=== PATIENT | female | born 1945 | race Caucasian/White ===

== ENCOUNTER 2019-10-17 09:55 | Inpatient (IN) ==
[2019-10-17] MEDS ORDERED: ONDANSETRON 4 MG/2 ML VIAL IV STA (11:49)
[2019-10-17] MEDS ORDERED: HYDROmorphone 2 MG/1 ML VIAL IM STA (11:49)
[2019-10-17 12:14] LABS: Basophils % 0.2 % (0.0-0.8); Eosinophils # 0.1 10*3/uL (0.0-0.87); Eosinophils % 0.7 % (0.00-10.9); Hematocrit 36.5 VOL% (35.7-47.0); Hemoglobin 12.3 GM/DL (12.0-16.0); Immature Granulocytes % 0.6 %; Immature Granulocytes Absolute 0.11 #; Lymphocytes # 1.5 10*3/uL (1.4-4.0); Mean Corpuscular HGB Conc 33.7 GM/DL (32-36); Mean Corpuscular Volume 95.1 FL (87-102); Mean Platelet Volume 11.5 FL (9.6-12.0); Monocytes % 3.4 % (1.7-12.7); Neutrophils % 87.1 % (38.7-73.9); Platelet Count 200 T/CUMM (130-400); Red Blood Count 3.84 MC/CUMM (3.8-5.5); Red Cell Distribution Width 14.6 % (9.3-17.3); White Blood Count 18.4 T/CUMM (4-12)
[2019-10-17 12:32] LABS: Bilirubin,Total 0.7 MG/DL (0.2-1.0); Calcium 8.3 MG/DL (8.5-10.1); Osmolality,Calculated 278.4 MOS/KG (273-304); Total Protein 6.8 G/DL (6.4-8.3)
[2019-10-17] MEDS ORDERED: HYDROmorphone 2 MG/1 ML VIAL IV STA (12:35)
[2019-10-17] MEDS ORDERED: VANCOMYCIN INJ 1,250 MG in SODIUM CHLORIDE 0.9% 250 ML IV STA (12:43)
[2019-10-17] MEDS ORDERED: PIPERACILLIN/TAZOBACTAM 3,375 MG in SODIUM CHLORIDE 0.9% 100 ML IV STA (12:43)
[2019-10-17] MEDS ORDERED: POTASSIUM CHLORIDE 20 MEQ TABLET PO STA (12:45)
[2019-10-17] MEDS ORDERED: SODIUM CHLORIDE 0.9% 1,000 ML IV STA (12:45)
[2019-10-17] MEDS ORDERED: ACETAMINOPHEN 325 MG TABLET PO PRN (13:41)
[2019-10-17] MEDS ORDERED: LACTULOSE 20 GM/30 ML UDCUP PO PRN (13:41)
[2019-10-17] MEDS ORDERED: ONDANSETRON 4 MG/2 ML VIAL IV PRN (13:41)
[2019-10-17] MEDS ORDERED: MAGNESIUM SULF RIDER 2 GM in PREMIX 1 EACH IV PRN (13:47)
[2019-10-17] MEDS ORDERED: MAGNESIUM SULF RIDER 4 GM in PREMIX 1 EACH IV PRN (13:47)
[2019-10-17] MEDS ORDERED: SODIUM CHLORIDE 0.9% 2,450 ML IV ONE (13:47)
[2019-10-17] MEDS ORDERED: FUROSEMIDE 20 MG/2 ML VIAL IV ONE (14:50)
[2019-10-17 15:15] LABS: Apearance,Urine CLEAR (Clear); Bilirubin,Urine Negative (Negative); Blood, Urine Negative (Negative); Glucose,Urine (UA) Negative (Negative); Ketones,Urine Negative (Negative); Mucus,Urine Occasional /LPF (Occasional); Nitrite,Urine Negative (Negative); Protein,Urine Negative; RBC,Urine 5 /HPF (0-4); Squamous Epithelial Cell,Urine Occasional /HPF (0-10); Urine Color Yellow (Yellow); Urine Urobilinogen < 2.0 EU/DL (0.2-1.0); WBC,Urine 6 /HPF (0-6)
[2019-10-17] MEDS ORDERED: hydrALAZINE 20 MG/1 ML VIAL IV PRN (15:17)
[2019-10-17] MEDS ORDERED: POTASSIUM CHLORIDE RIDER 10 MEQ in PREMIX 1 EACH IV PRN (16:00)
[2019-10-17] MEDS: SODIUM CHLORIDE 0.9% 1,000 ML IV SCH (18:22)
[2019-10-17] MEDS: MORPHINE 4 MG/1 ML VIAL IV PRN (18:22)
[2019-10-17] MEDS: LEVOFLOXACIN INJ 750 MG in PREMIX 1 EACH IV SCH (18:23)
[2019-10-17] MEDS: ALBUTEROL/IPRATROPIUM 3 ML NEB RESP TX SCH (19:18)
[2019-10-17] MEDS: PIPERACILLIN/TAZOBACTAM 3,375 MG in SODIUM CHLORIDE 0.9% 100 ML IV SCH (20:55)
[2019-10-17] MEDS: diphenhydrAMINE CAP 25 MG CAPSULE PO PRN (21:18)
[2019-10-17] MEDS: ENOXAPARIN 40 MG/0.4 ML SYRINGE SUBCUT SCH (21:19)
[2019-10-18] MEDS: VANCOMYCIN INJ 1,250 MG in SODIUM CHLORIDE 0.9% 250 ML IV SCH ×2 (00:29→12:48)
[2019-10-18] MEDS: ALBUTEROL/IPRATROPIUM 3 ML NEB RESP TX SCH ×4 (00:50→19:14)
[2019-10-18] MEDS: MORPHINE 4 MG/1 ML VIAL IV PRN ×3 (01:26→20:42)
[2019-10-18] MEDS: PIPERACILLIN/TAZOBACTAM 3,375 MG in SODIUM CHLORIDE 0.9% 100 ML IV SCH ×2 (04:59→17:44)
[2019-10-18 06:36] LABS: Basophils % 0.3 % (0.0-0.8); Eosinophils # 0.3 10*3/uL (0.0-0.87); Eosinophils % 1.8 % (0.00-10.9); Hematocrit 33.3 VOL% (35.7-47.0); Hemoglobin 10.5 GM/DL (12.0-16.0); Immature Granulocytes % 0.6 %; Immature Granulocytes Absolute 0.09 #; Lymphocytes # 1.7 10*3/uL (1.4-4.0); Lymphocytes % 11.9 % (21.3-54.2); Mean Corpuscular HGB Conc 31.5 GM/DL (32-36); Monocytes % 5.4 % (1.7-12.7); Platelet Count 189 T/CUMM (130-400); Red Blood Count 3.33 MC/CUMM (3.8-5.5); Red Cell Distribution Width 15.1 % (9.3-17.3); White Blood Count 14.5 T/CUMM (4-12)
[2019-10-18 07:00] LABS: Albumin 2.4 G/DL (3.4-5.0); Bilirubin,Total 1.1 MG/DL (0.2-1.0); Calcium 7.8 MG/DL (8.5-10.1); Osmolality,Calculated 280.3 MOS/KG (273-304); Total Protein 5.9 G/DL (6.4-8.3)
[2019-10-18] MEDS: CHOLECALCIFEROL 1,000 UNIT TABLET PO SCH (08:40)
[2019-10-18] MEDS: CITALOPRAM 20 MG TABLET PO SCH (08:40)
[2019-10-18] MEDS: ANASTROZOLE 1 MG TABLET PO SCH (08:40)
[2019-10-18] MEDS: MULTIVITAMIN (BEROCCA) TABLET PO SCH (08:40)
[2019-10-18] MEDS: PANTOPRAZOLE 40 MG TABLET PO SCH (08:41)
[2019-10-18] MEDS ORDERED: ERGOCALCIFEROL 50,000 UNIT CAPSULE PO ONE (10:26)
[2019-10-18] MEDS: IBUPROFEN 400 MG TABLET PO PRN ×2 (11:20→17:41)
[2019-10-18] MEDS: LEVOFLOXACIN INJ 750 MG in PREMIX 1 EACH IV SCH (15:06)
[2019-10-18] MEDS: SODIUM CHLORIDE 0.9% 1,000 ML IV SCH ×2 (17:44→23:57)
[2019-10-18] MEDS: ENOXAPARIN 40 MG/0.4 ML SYRINGE SUBCUT SCH (20:42)
[2019-10-18] MEDS: diphenhydrAMINE CAP 25 MG CAPSULE PO PRN (20:53)
[2019-10-19] MEDS: ALBUTEROL/IPRATROPIUM 3 ML NEB RESP TX SCH ×4 (00:07→19:28)
[2019-10-19] MEDS: VANCOMYCIN INJ 1,250 MG in SODIUM CHLORIDE 0.9% 250 ML IV SCH (00:33)
[2019-10-19] MEDS: IBUPROFEN 400 MG TABLET PO PRN ×3 (00:37→22:04)
[2019-10-19] MEDS: PIPERACILLIN/TAZOBACTAM 3,375 MG in SODIUM CHLORIDE 0.9% 100 ML IV SCH ×2 (01:43→09:16)
[2019-10-19 05:14] LABS: Basophils % 0.2 % (0.0-0.8); Eosinophils # 0.6 10*3/uL (0.0-0.87); Eosinophils % 5.6 % (0.00-10.9); Hematocrit 28.5 VOL% (35.7-47.0); Hemoglobin 9.4 GM/DL (12.0-16.0); Immature Granulocytes % 0.6 %; Immature Granulocytes Absolute 0.06 #; Lymphocytes # 1.5 10*3/uL (1.4-4.0); Lymphocytes % 15.1 % (21.3-54.2); Mean Corpuscular Volume 97.9 FL (87-102); Mean Platelet Volume 12.1 FL (9.6-12.0); Monocytes % 8.1 % (1.7-12.7); Neutrophils % 70.4 % (38.7-73.9); Platelet Count 162 T/CUMM (130-400); Red Blood Count 2.91 MC/CUMM (3.8-5.5); Red Cell Distribution Width 14.9 % (9.3-17.3); White Blood Count 10.1 T/CUMM (4-12)
[2019-10-19 05:29] LABS: Calcium 8.1 MG/DL (8.5-10.1); Osmolality,Calculated 288.7 MOS/KG (273-304)
[2019-10-19] MEDS: PANTOPRAZOLE 40 MG TABLET PO SCH (09:13)
[2019-10-19] MEDS: ANASTROZOLE 1 MG TABLET PO SCH (09:13)
[2019-10-19] MEDS: CHOLECALCIFEROL 1,000 UNIT TABLET PO SCH (09:13)
[2019-10-19] MEDS: POTASSIUM CHLORIDE 20 MEQ TABLET PO SCH ×2 (09:14→11:26)
[2019-10-19] MEDS: MULTIVITAMIN (BEROCCA) TABLET PO SCH (09:14)
[2019-10-19] MEDS: CITALOPRAM 20 MG TABLET PO SCH (09:14)
[2019-10-19] MEDS: DOCUSATE SODIUM 100 MG CAPSULE PO PRN ×2 (09:20→20:18)
[2019-10-19] MEDS: ceFAZolin 1,000 MG in SYRINGE 1 EACH IV SCH ×2 (11:38→20:09)
[2019-10-19] MEDS: SODIUM CHLORIDE 0.9% 1,000 ML IV SCH (16:04)
[2019-10-19] MEDS: DOXYCYCLINE HYCLATE 100 MG CAPSULE PO SCH (20:07)
[2019-10-19] MEDS: ENOXAPARIN 40 MG/0.4 ML SYRINGE SUBCUT SCH (20:08)
[2019-10-19] MEDS: MORPHINE 4 MG/1 ML VIAL IV PRN (23:03)
[2019-10-20] MEDS: ALBUTEROL/IPRATROPIUM 3 ML NEB RESP TX SCH ×2 (01:20→07:25)
[2019-10-20] MEDS: ceFAZolin 1,000 MG in SYRINGE 1 EACH IV SCH ×2 (03:48→12:15)
[2019-10-20] MEDS: diphenhydrAMINE CAP 25 MG CAPSULE PO PRN (03:53)
[2019-10-20 06:03] LABS: Basophils # 0.1 10*3/uL (0.0-0.2); Basophils % 0.4 % (0.0-0.8); Eosinophils % 0.2 % (0.00-10.9); Hematocrit 28.4 VOL% (35.7-47.0); Hemoglobin 9.5 GM/DL (12.0-16.0); Immature Granulocytes % 3.1 %; Immature Granulocytes Absolute 0.44 #; Lymphocytes # 1.5 10*3/uL (1.4-4.0); Lymphocytes % 10.5 % (21.3-54.2); Mean Corpuscular HGB Conc 33.5 GM/DL (32-36); Mean Corpuscular Volume 85.8 FL (87-102); Mean Platelet Volume 9.9 FL (9.6-12.0); Monocytes % 8.4 % (1.7-12.7); Neutrophils % 77.4 % (38.7-73.9); Platelet Count 227 T/CUMM (130-400); Red Blood Count 3.31 MC/CUMM (3.8-5.5); Red Cell Distribution Width 15.6 % (9.3-17.3); White Blood Count 14.3 T/CUMM (4-12)
[2019-10-20 06:29] LABS: Calcium 7.2 MG/DL (8.5-10.1); Osmolality,Calculated 271.2 MOS/KG (273-304)
[2019-10-20 06:33] LABS: Folate 4.6 NG/ML (5.4-24.0); Vitamin B12 667 PG/ML (211-911)
[2019-10-20 06:39] LABS: % Iron Saturation 55.3 % (18-50)
[2019-10-20 07:25] LABS: Sedimentation Rate-Westergren 95 MM/HR (0-30)
[2019-10-20] MEDS ORDERED: POTASSIUM CHLORIDE 20 MEQ TABLET PO ONE (08:06)
[2019-10-20] MEDS: DOCUSATE SODIUM 100 MG CAPSULE PO PRN (08:29)
[2019-10-20] MEDS: MULTIVITAMIN (BEROCCA) TABLET PO SCH (08:30)
[2019-10-20] MEDS: CITALOPRAM 20 MG TABLET PO SCH (08:30)
[2019-10-20] MEDS: DOXYCYCLINE HYCLATE 100 MG CAPSULE PO SCH (08:30)
[2019-10-20] MEDS: CHOLECALCIFEROL 1,000 UNIT TABLET PO SCH (08:30)
[2019-10-20] MEDS: ANASTROZOLE 1 MG TABLET PO SCH (08:31)
[2019-10-20] MEDS: PANTOPRAZOLE 40 MG TABLET PO SCH (08:31)
[2019-10-20] MEDS: MORPHINE 4 MG/1 ML VIAL IV PRN (08:32)
[2019-10-20] MEDS ORDERED: HEPARIN LOCK FLUSH 500 UNIT/5 ML SYRINGE IV ONE ×3 (08:39→13:25)
[2019-10-20] MEDS ORDERED: FOLIC ACID 1 MG TABLET PO SCH (10:30)
[2019-10-20] MEDS: IBUPROFEN 400 MG TABLET PO PRN (12:16)
[2019-10-20 12:21] VITALS: BP 141/68
[2019-10-22 04:56] LABS: Bart Quintana IgG <1:128 titer (<1:128); Bart Quintana IgM <1:20 titer (<1:20)
[2019-10-22 09:34] LABS: Hemoglobin A1 (Alkaline) 97.4 % (96.5-98.5); Hemoglobin A2 (Alkaline) 2.6 % (1.5-3.5)
[2019-10-22 13:16] LABS: Coxiella burnetii PCR Negative (Negative); Specimen Source BLOOD
== END 2019-10-20 14:12 | disposition home health service (06) | DRG 602 ==
LOC: N.ED 09:55 → N.EDINP 13:41 → N.4E 15:01
PROVIDERS: ADMIT Hospitalist; ATTEND Hospitalist